=== PATIENT | male | born 1970 | race Caucasian/White ===

== ENCOUNTER 2024-01-28 13:45 | Observation (INO) ==
[2024-01-28] MEDS: NOZIN NASAL SANITIZER TP ONE (09:31)
[2024-01-28] MEDS: NS 1,000 ML IV 1,000 ML ONE (09:33)
[2024-01-28 10:14] VITALS: BMI 33.7
[2024-01-28] MEDS: VERSED ONE (10:49)
[2024-01-28] MEDS: DIPRIVAN VIAL 20 ML ONE (10:52)
[2024-01-28] MEDS: FENTANYL VIAL INJ 100 mcg ONE (10:52)
[2024-01-28] MEDS: ZOFRAN INJ 4 MG VIAL ONE (10:54)
[2024-01-28] MEDS: REGLAN INJ 10 MG VIAL ONE (10:54)
[2024-01-28] MEDS: VANCOMYCIN HCL ONE (11:35)
[2024-01-28] MEDS: CLEOCIN 600 MG IV PREMIX 600 MG/50 ML BAG IV ONE (11:55)
[2024-01-28] MEDS: EPHEDRINE SULFATE INJ ONE (12:16)
[2024-01-28] MEDS: TOBRAMYCIN SULFATE ONE (12:25)
[2024-01-28] MEDS: MARCAINE 0.25% INJ ONE (12:25)
[2024-01-28] MEDS: TORADOL 30 MG VIAL ONE (12:39)
[2024-01-28] MEDS: OFIRMEV IV 1000 MG VIAL 1,000 MG/100 ML VIAL IV ONE (12:40)
[2024-01-28] MEDS: SUPRANE ONE (12:53)
[2024-01-28] MEDS: NEO-SYNEPHRINE INJ ONE (13:12)
[~2024-01-28 13:45] MED LIST: BARHEMSYS INJ IVP PRN; BENADRYL INJ 50 MG VIAL IVP PRN; DILAUDID INJ IVP PRN; REGLAN INJ 10 MG VIAL IVP PRN; SUPRANE ONE; ZOFRAN INJ 4 MG VIAL IVP PRN
[2024-01-28] MEDS ORDERED: TYLENOL 325 MG TAB PO PRN (15:04)
--- NOTE | 2024-01-28 15:04 | EKG ---
Test Reason : ST elevation Blood Pressure : */* mmHG Vent. Rate : 93 BPM Atrial Rate : 93 BPM P-R Int : 174 ms QRS Dur : 98 ms QT Int : 378 ms P-R-T Axes : -3 90 5 degrees QTc Int : 469 ms Normal sinus rhythm Rightward axis Borderline ECG When compared with ECG of 26-JAN-2024 08:47, (Unconfirmed) No significant change was found Confirmed by Sal Mario MD ([id number]) on 01/30/2024 11:24:04 AM Referred By: Confirmed By: Sal Mario MD
[2024-01-28] MEDS ORDERED: NS IRRIGATION* 500 ML IR ONE (16:15)
[2024-01-28] MEDS: NS 100 ML IV 100 ML ONE (16:48)
[2024-01-28] MEDS: OMNIPAQUE 350 mg/mL 100 mL BTL 100 ML ONE (16:49)
[2024-01-28] MEDS: OMNIPAQUE 350 mg/mL 50 mL BTL 50 ML ONE (16:49)
[2024-01-28] MEDS: NS 1,000 ML IV 1,000 ML IV SCH (16:53)
[2024-01-28] MEDS: DILAUDID INJ IVP PRN (16:54)
--- NOTE | 2024-01-28 20:17 | CT ---
PROCEDURE: CTA abdomen and pelvis with bilateral iliofemoral runoff.HISTORY: PAD LLE, OSTEOMYELITIS LEFT ANKLE; .TECHNIQUE: Axial images were performed through the abdomen and pelvis with bilateral ileal femoral runoff without and with the administration of IV contrast with multiplanar reformations . 3D and MIPS reconstructions were performed and reviewed. Dose reduction techniques including Automated Exposure Control (AEC) and adjustment of mA and kV were utilized .COMPARISON: None.TECHNICAL QUALITY: Satisfactory.FINDINGS:Visualized liver and spleen are unremarkable. Remainder of the upper abdominal solid organs show no acute abnormality. Small cyst right kidney. Subcentimeter nonobstructing caliceal stone left kidney.Previous cholecystectomy.No ascites or pneumoperitoneum.No lymphadenopathy.No bowel obstruction or inflammation. Appendix is not visualized.Pelvis shows no masses or free fluid and normal urinary bladder.No acute bony abnormality.VascularMinimal atherosclerosis abdominal aorta with no other significant abnormality. 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 Right popliteal artery is unremarkable. Limited visualization of anterior and posterior tibial arteries with decreased contrast. One-vessel and possibly three-vessel runoff at the right ankle.Left femoral and popliteal arteries are unremarkable. Proximal trifurcation vessels are unremarkable. Distal trifurcation vessels not visualized due to artifact off the patient's external fixation left lower extremity hardware.IMPRESSION:1. Distal trifurcation vessels on the left not visualized due to artifact.2. Remainder of the left lower extremity arterial supplies unremarkable.3. Occluded mid right profunda femoral artery with no other right lower extremity vascular abnormality.4. Left nephrolithiasis.THIS IS AN ELECTRONICALLY VERIFIED FINAL REPORT01/28/2024 8:13 PM - Electronically signed by Urban White MD
[2024-01-28] MEDS: ZOFRAN INJ 4 MG VIAL IVP PRN (20:42)
[2024-01-28] MEDS: ANCEF VIAL 1 GRAM IVP SCH (21:18)
[2024-01-28] MEDS: STERILE WATER IRRIGATION IR ONE (22:43)
[2024-01-29] MEDS: PERCOCET TAB 5/325 MG PO PRN (00:38)
[2024-01-29 06:28] LABS: BLOOD UREA NITROGEN 9 mg/dL (7-18); CALCIUM 7.8 mg/dL (8.5-10.1); CARBON DIOXIDE 33.8 mmol/L (21-32); CHLORIDE 103 mmol/L (98-107); CREATININE 0.92 mg/dL (0.70-1.30); GLUCOSE 88 mg/dL (65-99); POTASSIUM 4.4 mmol/L (3.5-5.1); SODIUM 139 mmol/L (136-145); eGFR NON BLACK RACES > 60 (>60)
--- NOTE | 2024-01-29 08:24 | NOTE.SOAP ---
Soap Note Note for Day of Date of Exam: 01/29/24 Subjective Data Subjective Data: patient seen bedside. resting comfortably. NAD. had some bleeding overnight. Objective Data Objective Data: patient with motor intact to toes. has frame stable. no pin site irritation or bleeding. has incision without hematoma. has no bleedign plantar or maceration. no wound. Assessment Assessment: 53 M with osteomyelitis of the hindfoot. PAD. Valgus ankle Plan Plan: CT reviewed - right side profunda occlusion not acute and can likely be delt with outpatient. images and report reviewed. appears to have good flow with three vessel runoff to the ankel but frame obscures view at ankle. Dr. Chang consulted and will discuss with him if need for inpatient treatment vs. outpatient. Frame: stable. ok for up to 50% WB with assistive device. has devices at home. no home needs. has home nurses but do not need dressing changes. he is doing ancef at home q8h and will continue. dressing changed today. will plan for D/C to home today unless Dr. Chang feels needs vascular intervention at this time. Rxs on chart for percocet and will have do lovenox at home. daily.
[2024-01-29] MEDS: LOVENOX INJ 40 MG SYR SC SCH (09:13)
[2024-01-29 09:22] VITALS: BP 127/77; PULSE 88; TEMP 98.1; O2SAT 100
[2024-01-29 10:19] VITALS: RESP 19
== END 2024-01-29 11:50 | disposition home or self-care (01) ==
LOC: MED/SURG → EDUNIT# 13:45
PROVIDERS: ADMIT Obstetrics & Gynecology Obstetrics; ATTEND Obstetrics & Gynecology Obstetrics
PROC: DEBRIDE (2024-01-28 14:00)
PROC: APEXFIX (2024-01-28 14:00)
DX: M21.072 Valgus deformity, not elsewhere classified, left ankle; R94.31 Abnormal electrocardiogram [ECG] [EKG]; G89.18 Other acute postprocedural pain; M86.372 Chronic multifocal osteomyelitis, left ankle and foot

== ENCOUNTER 2024-03-03 10:45 | Observation (INO) ==
[2024-03-03] MEDS: NS 1,000 ML IV 1,000 ML ONE ×2 (11:57→16:41)
[2024-03-03] MEDS: NOZIN NASAL SANITIZER TP ONE (12:06)
[2024-03-03 12:22] VITALS: BMI 33.9
[2024-03-03] MEDS ORDERED: BENADRYL INJ 50 MG VIAL IVP PRN (14:34)
[2024-03-03] MEDS ORDERED: BARHEMSYS INJ IVP PRN (14:34)
[2024-03-03] MEDS ORDERED: ZOFRAN INJ 4 MG VIAL IVP PRN (14:34)
[2024-03-03] MEDS ORDERED: KETAMINE HCL ONE (14:40)
[2024-03-03] MEDS: VERSED ONE (14:40)
[2024-03-03] MEDS: KETAMINE 50 MG/5 ML-NACL SYRNG ONE (14:40)
[2024-03-03] MEDS: DIPRIVAN VIAL 20 ML ONE (14:40)
[2024-03-03] MEDS ORDERED: ULTANE GAS IN ONE (14:40)
[2024-03-03] MEDS: OFIRMEV IV 1000 MG VIAL 1,000 MG/100 ML VIAL IV ONE (14:40)
[2024-03-03] MEDS: ZOFRAN INJ 4 MG VIAL ONE (14:40)
[2024-03-03] MEDS: REGLAN INJ 10 MG VIAL ONE (14:40)
[2024-03-03] MEDS ORDERED: XYLOCAINE 2 % (PLAIN) ONE (14:40)
[2024-03-03] MEDS: PEPCID 20 MG VIAL ONE (14:40)
[2024-03-03] MEDS: FENTANYL VIAL INJ 100 mcg ONE ×2 (14:40→16:00)
[2024-03-03] MEDS: BETADINE SOLN ONE (14:40)
[2024-03-03] MEDS: DECADRON INJ ONE (14:40)
[2024-03-03] MEDS: ANCEF VIAL 1 GRAM ONE (14:41)
[2024-03-03] MEDS: NS 100 ML IV 100 ML ONE (14:41)
[2024-03-03] MEDS ORDERED: TYLENOL 325 MG TAB PO PRN (14:53)
[2024-03-03] MEDS: EPHEDRINE SULFATE INJ ONE (15:05)
[2024-03-03] MEDS: MARCAINE 0.25% INJ ONE (15:11)
[2024-03-03] MEDS: TOBRAMYCIN SULFATE ONE (15:11)
[2024-03-03] MEDS ORDERED: DILAUDID INJ ONE (17:29)
[2024-03-03] MEDS: DILAUDID INJ IVP PRN ×2 (17:31→21:02)
[2024-03-03] MEDS: ANCEF VIAL 1 GRAM IVP SCH (18:04)
[2024-03-03] MEDS: PERCOCET TAB 5/325 MG PO PRN (19:21)
[2024-03-03] MEDS: COLACE CAP 100 MG PO SCH (20:49)
[2024-03-03] MEDS ORDERED: STERILE WATER IRRIGATION IR ONE (20:57)
[2024-03-03] MEDS: NOZIN NASAL SANITIZER TP SCH (21:10)
[2024-03-04 06:37] LABS: BLOOD UREA NITROGEN 9 mg/dL (7-18); CALCIUM 8.2 mg/dL (8.5-10.1); CARBON DIOXIDE 30.3 mmol/L (21-32); CHLORIDE 103 mmol/L (98-107); COR NA(FOR HYPERGLY) 139 mmol/L (136-145); CREATININE 0.96 mg/dL (0.70-1.30); GLUCOSE 174 mg/dL (65-99); POTASSIUM 4.2 mmol/L (3.5-5.1); SODIUM 137 mmol/L (136-145); eGFR NON BLACK RACES > 60 (>60)
[2024-03-04 07:55] VITALS: BP 110/62; PULSE 90; TEMP 98.3; O2SAT 98
--- NOTE | 2024-03-04 08:21 | NOTE.SOAP ---
Soap Note Note for Day of Date of Exam: 03/04/24 Subjective Data Subjective Data: Patient denies any N, V, F, Chills, Shortness of breathe, or chest pain. Denies any calf pain. Has some pain along anterior pin site. Objective Data Objective Data: Left Lower Extremity Exam: Dressing had some strikethrough noted. CFT WNL to all digits. Dressing was saturated underneath the ADDY wraps. Changed it. All incisions appear healing well. Minimal sanguineous drainage on expression. No calf pain or thigh pain. Assessment Assessment: Osteomyelitis, Left Ankle POD#1 Ex Fix removal, Antibiotic nliton placement with straddle plate Plan Plan: - NWB to LLE. - Rx for Pain Medication, Lovenox in chart, and Zofran in chart. - Needs more one dose of Ancef this am then can be discharged and have PICC line pulled. - Patient will follow-up next week with Dr. Sheriff.
[2024-03-04 09:26] VITALS: RESP 18
[2024-03-04] MEDS: LOVENOX INJ 40 MG SYR SC SCH (09:26)
[2024-03-04] MEDS: ZOFRAN INJ 4 MG VIAL IVP PRN (09:30)
== END 2024-03-04 11:25 | disposition home or self-care (01) ==
LOC: MED/SURG
PROVIDERS: ADMIT Obstetrics & Gynecology Obstetrics; ATTEND Obstetrics & Gynecology Obstetrics